=== PATIENT | female | born 1975 | race Caucasian/White ===

== ENCOUNTER 2021-04-18 11:02 | Inpatient (IN) | payer OTHER ==
[~2021-04-18] VITALS: Ht 188 cm; Wt 89.0 kg
[2021-04-18] MEDS ORDERED: SODIUM CHLORIDE 0.9% 1,000ML IVBOLUS ONE (11:30)
[2021-04-18] MEDS ORDERED: ONDANSETRON 2MG/ML, 2ML IVPush ONE (11:30)
[2021-04-18] MEDS ORDERED: HYDROmorphone 1 MG/ML, 1ML INJ IV ONE ×2 (11:30→14:00)
[2021-04-18] MEDS ORDERED: HYDROmorphone 1 MG/ML, 1ML INJ ONE ×2 (11:32→14:16)
[2021-04-18] MEDS ORDERED: ONDANSETRON 2MG/ML, 2ML ONE (11:32)
[2021-04-18 11:56] LABS: BASOPHILS % (AUTO) 2 % (0-1); EOSINOPHILS % (AUTO) 5 % (1-7); LYMPHOCYTES % (AUTO) 24 % (22-44); MEAN CORPUSCULAR HEMOGLOBIN 31.7 pg (27.0-34.8); MEAN CORPUSCULAR HGB CONC 34.5 g/dL (32.4-35.8); MEAN PLATELET VOLUME 7.6 fL (7.4-10.4); MONOCYTES % (AUTO) 9 % (2-9); NEUTROPHILS % (AUTO) 61 % (42-75); PLATELET COUNT 292 x10^3/uL (130-400); RED BLOOD COUNT 5.17 x10^6/uL (3.82-5.3); RED CELL DISTRIBUTION WIDTH 13.3 % (9.6-15.2)
[2021-04-18 12:00] LABS: ALBUMIN 4.1 g/dL (3.4-5.0); ANION GAP 6 mmol/L (5-15); CALCIUM 9.4 mg/dL (8.5-10.1); CHLORIDE 107 mmol/L (98-107)
[2021-04-18 12:05] LABS: ALANINE AMINOTRANSFERASE 31 U/L (12-78); ALKALINE PHOSPHATASE 58 U/L (45-117); BILIRUBIN,TOTAL 0.6 mg/dL (0.2-1.0); CREATININE 1.07 mg/dL (0.55-1.02); TOTAL PROTEIN 7.6 g/dL (6.4-8.2)
--- NOTE | 2021-04-18 12:28 | NUR ---
PT IN CT AT THIS TIME.
[2021-04-18] MEDS ORDERED: OMNIPAQUE 350 MG/ML, 100ML BOTTLE ONE (12:30)
--- NOTE | 2021-04-18 12:54 | NUR ---
STILL NO URINE SAMPLE PROVIDED. ORDERED FLUIDS ARE INFUSING. PT AWARE SHE NEEDS TO PROVIDE URINE SAMPLE. PT GIVEN URINE CUP.
--- NOTE | 2021-04-18 12:55 | NUR ---
PT WANTED ERP TO BE AWARE SHE HAD INTERNAL HERNIAS BEFORE FROM A Y-ROUTE GASTRIC BYPASS. ERP INFORMED.
[2021-04-18 13:27] LABS: MICROSCOPIC NOT IND
--- NOTE | 2021-04-18 13:38 | NUR ---
dr falcon spoke with dr ashby
--- NOTE | 2021-04-18 14:28 | NUR ---
PT MEDICATED PER JAN, LIGHTS DIMMED FOR COMFORT. PT WITH CALL LIGHT IN REACH. NO OTHER NEEDS AT THIS TIME
[2021-04-18] MEDS ORDERED: LACTATED RINGERS 500 ML IVBOLUS PRN (16:00)
[2021-04-18] MEDS ORDERED: ONDANSETRON 2MG/ML, 2ML IVPush PRN (16:00)
--- NOTE | 2021-04-18 16:00 | NUR ---
ATTEMPT TO CALL REPORT X1 TOLD RN WILL CALL BACK
[2021-04-18] MEDS ORDERED: LORazepam 2 MG/ML, 1ML IVPush PRN (16:30)
[2021-04-18 17:11] VITALS: BP 119/85
[2021-04-18 17:15] VITALS: BP 119/85
[2021-04-18] MEDS: POTASSIUM CHLORIDE 20 MEQ in D5%-0.45% NACL 1,000 ML IV SCH (17:49)
[2021-04-18] MEDS: HYDROmorphone 2 MG/ML, 1ML IVPush PRN ×2 (17:49→20:27)
[2021-04-18 19:09] VITALS: BP 114/72
[2021-04-19] MEDS: HYDROmorphone 2 MG/ML, 1ML IVPush PRN ×6 (00:56→23:58)
[2021-04-19 01:07] VITALS: BP 97/60
[2021-04-19] MEDS: POTASSIUM CHLORIDE 20 MEQ in D5%-0.45% NACL 1,000 ML IV SCH ×2 (02:57→13:00)
[2021-04-19 05:36] LABS: BASOPHILS % (AUTO) 1 % (0-1); EOSINOPHILS % (AUTO) 8 % (1-7); LYMPHOCYTES % (AUTO) 47 % (22-44); MEAN CORPUSCULAR HEMOGLOBIN 31.6 pg (27.0-34.8); MEAN CORPUSCULAR HGB CONC 34.4 g/dL (32.4-35.8); MEAN PLATELET VOLUME 7.7 fL (7.4-10.4); MONOCYTES % (AUTO) 10 % (2-9); NEUTROPHILS % (AUTO) 34 % (42-75); PLATELET COUNT 224 x10^3/uL (130-400); RED BLOOD COUNT 4.29 x10^6/uL (3.82-5.3); RED CELL DISTRIBUTION WIDTH 13.4 % (9.6-15.2)
[2021-04-19 05:44] LABS: ALBUMIN 3.2 g/dL (3.4-5.0); ANION GAP 3 mmol/L (5-15); CALCIUM 8.8 mg/dL (8.5-10.1); CHLORIDE 110 mmol/L (98-107)
[2021-04-19 05:48] LABS: ALANINE AMINOTRANSFERASE 24 U/L (12-78); ALKALINE PHOSPHATASE 44 U/L (45-117); BILIRUBIN,TOTAL 0.5 mg/dL (0.2-1.0); CREATININE 0.85 mg/dL (0.55-1.02); TOTAL PROTEIN 5.8 g/dL (6.4-8.2)
[2021-04-19 07:50] VITALS: BP 101/63
[2021-04-19 13:44] VITALS: BP 116/73
[2021-04-19] MEDS ORDERED: CHLORHEXIDINE 15 ML UDC ONE (13:58)
[2021-04-19] MEDS ORDERED: CHLORHEXIDINE 15 ML UDC PO ONE (14:00)
[2021-04-19] MEDS ORDERED: BUPIVACAINE/PF 0.5% ONE (14:27)
[2021-04-19] MEDS ORDERED: EPINEPHRINE 1 MG/ML, 1ML ONE (14:27)
[2021-04-19] MEDS ORDERED: FENTANYL PF 250 MCG/5ML ONE (14:44)
[2021-04-19] MEDS ORDERED: MIDAZOLAM 1 MG/ML, 2ML ONE (14:44)
[2021-04-19] MEDS ORDERED: CEFOTETAN 2 GM ONE (14:49)
[2021-04-19] MEDS ORDERED: DEXAMETHASONE 4 MG/ML, 1ML ONE (14:49)
[2021-04-19] MEDS ORDERED: LACTATED RINGERS 1,000 ML IV SCH (15:00)
[2021-04-19] MEDS ORDERED: PROPOFOL 10 MG/ML, 20ML ONE (17:09)
[2021-04-19] MEDS ORDERED: ROCURONIUM 10MG/ML,5ML ONE (17:09)
[2021-04-19] MEDS ORDERED: CEFAZOLIN 1,000 MG ONE (17:09)
[2021-04-19] MEDS ORDERED: LIDOCAINE-MPF 2% ,5ML ONE ×2 (17:09)
[2021-04-19] MEDS ORDERED: NEOSTIGMINE 1 MG/ML, 10ML ONE (17:09)
[2021-04-19] MEDS ORDERED: SUCCINYLCHOLINE 20 MG/ML, 10ML ONE (17:09)
[2021-04-19] MEDS ORDERED: GLYCOPYRROLATE 0.2MG/1ML, 5ML ONE (17:09)
[2021-04-19] MEDS ORDERED: ONDANSETRON 2MG/ML, 2ML ONE (17:09)
[2021-04-19] MEDS ORDERED: FENTANYL PF 100 MCG/2ML ONE (17:26)
[2021-04-19] MEDS ORDERED: OXYcodone 5 MG/5 ML ORAL.SOL UDC ONE (17:26)
[2021-04-19] MEDS: FENTANYL PF 100 MCG/2ML IV PRN ×2 (17:27→17:32)
[2021-04-19] MEDS ORDERED: METHOCARBAMOL 1,000 MG in DEXTROSE 5% 100 ML IV PRN (17:30)
[2021-04-19] MEDS ORDERED: PROMETHAZINE 25 MG SUPP PR PRN (17:30)
[2021-04-19] MEDS ORDERED: OXYcodone 5 MG/5 ML ORAL.SOL UDC PO PRN (17:30)
[2021-04-19] MEDS ORDERED: ONDANSETRON 2MG/ML, 2ML IVPush PRN ×2 (17:30→21:00)
[2021-04-19] MEDS ORDERED: ACETAMINOPHEN 325 MG TABLET PO PRN (17:30)
[2021-04-19] MEDS ORDERED: PROMETHAZINE 25 MG/ML, 1ML IVPush PRN (17:30)
[2021-04-19] MEDS ORDERED: HYDROmorphone 1 MG/ML, 1ML INJ IVPush PRN (17:30)
[2021-04-19] MEDS ORDERED: LORazepam 2 MG/ML, 1ML IVPush PRN (17:30)
[2021-04-19] MEDS ORDERED: ACETAMINOPHEN 650 MG/20.3 ML UDC ONE (17:35)
[2021-04-19] MEDS ORDERED: HYDROmorphone 2 MG/ML, 1ML ONE (17:38)
[2021-04-19] MEDS ORDERED: MEPERIDINE/PF 100 MG/ML ONE (17:39)
[2021-04-19] MEDS: MEPERIDINE/PF 25MG/0.5ML IVPush PRN ×2 (17:40→17:55)
[2021-04-19 18:35] VITALS: BP 121/79
[2021-04-19] MEDS ORDERED: LACTATED RINGERS 500 ML IVBOLUS PRN (19:00)
[2021-04-19] MEDS ORDERED: DIPHENHYDRAMINE 25 MG CAPSULE PO PRN (19:00)
[2021-04-19] MEDS ORDERED: PHENOL THROAT SPRAY BOTTLE MM PRN (19:00)
[2021-04-19] MEDS ORDERED: DIPHENHYDRAMINE 50 MG/ML, 1ML IV PRN (19:00)
[2021-04-19] MEDS ORDERED: ONDANSETRON 8 MG TABLET PO PRN (20:00)
[2021-04-19] MEDS ORDERED: PROMETHAZINE 25 MG/ML, 1ML IM PRN (20:00)
[2021-04-19] MEDS: ENOXAPARIN 40 MG/0.4 ML SQ SCH (20:16)
[2021-04-19] MEDS: ACETAMINOPHEN 325 MG TABLET PO SCH (20:17)
[2021-04-19] MEDS: KETOROLAC 30 MG/1 ML IVPush SCH (20:17)
[2021-04-19] MEDS: POTASSIUM CHLORIDE 20 MEQ in LACTATED RINGERS 1,000 ML IV SCH (21:32)
[2021-04-19 23:59] VITALS: BP 94/60
[2021-04-20] MEDS: ACETAMINOPHEN 325 MG TABLET PO SCH ×4 (02:15→21:08)
[2021-04-20] MEDS: KETOROLAC 30 MG/1 ML IVPush SCH ×4 (02:15→21:07)
[2021-04-20 04:31] VITALS: BP 119/78
[2021-04-20] MEDS: HYDROmorphone 2 MG/ML, 1ML IVPush PRN (04:47)
[2021-04-20 05:31] LABS: BASOPHILS % (AUTO) 1 % (0-1); EOSINOPHILS % (AUTO) 0 % (1-7); LYMPHOCYTES % (AUTO) 16 % (22-44); MEAN CORPUSCULAR HEMOGLOBIN 31.9 pg (27.0-34.8); MEAN PLATELET VOLUME 7.7 fL (7.4-10.4); MONOCYTES % (AUTO) 8 % (2-9); NEUTROPHILS % (AUTO) 76 % (42-75); PLATELET COUNT 209 x10^3/uL (130-400); RED BLOOD COUNT 4.09 x10^6/uL (3.82-5.3); RED CELL DISTRIBUTION WIDTH 13.1 % (9.6-15.2)
[2021-04-20 07:17] VITALS: BP 102/65
[2021-04-20] MEDS: METHOCARBAMOL 750 MG TABLET PO PRN ×2 (08:32→21:18)
[2021-04-20] MEDS: OXYcodone 5 MG/5 ML ORAL.SOL UDC PO PRN ×3 (08:32→18:04)
[2021-04-20 09:21] LABS: ALBUMIN 2.8 g/dL (3.4-5.0); ANION GAP 7 mmol/L (5-15); CALCIUM 8.2 mg/dL (8.5-10.1); CHLORIDE 107 mmol/L (98-107)
[2021-04-20] MEDS ORDERED: LORA2TAB99 PO (12:18)
[2021-04-20] MEDS ORDERED: LEVO150T5 PO (12:18)
[2021-04-20 13:22] VITALS: BP 111/73
[2021-04-20] MEDS: POTASSIUM CHLORIDE 20 MEQ in LACTATED RINGERS 1,000 ML IV SCH (15:22)
[2021-04-20 19:45] VITALS: BP 107/66
[2021-04-20] MEDS ORDERED: LORazepam 1MG TABLET PO SCH (21:00)
[2021-04-20] MEDS: ENOXAPARIN 40 MG/0.4 ML SQ SCH (21:08)
[2021-04-21 02:21] VITALS: BP_SYST 133; BP_SYST 99; BP_DIAS 64; BP_DIAS 72
[2021-04-21] MEDS: KETOROLAC 30 MG/1 ML IVPush SCH ×2 (02:53→08:03)
[2021-04-21] MEDS: ACETAMINOPHEN 325 MG TABLET PO SCH ×2 (02:53→08:03)
[2021-04-21 05:33] LABS: BASOPHILS % (AUTO) 1 % (0-1); EOSINOPHILS % (AUTO) 5 % (1-7); LYMPHOCYTES % (AUTO) 28 % (22-44); MEAN CORPUSCULAR HEMOGLOBIN 31.9 pg (27.0-34.8); MEAN CORPUSCULAR HGB CONC 34.5 g/dL (32.4-35.8); MEAN PLATELET VOLUME 8.1 fL (7.4-10.4); MONOCYTES % (AUTO) 9 % (2-9); NEUTROPHILS % (AUTO) 57 % (42-75); PLATELET COUNT 203 x10^3/uL (130-400); RED BLOOD COUNT 3.97 x10^6/uL (3.82-5.3)
[2021-04-21] MEDS ORDERED: LEVOTHYROXINE 150 MCG TABLET PO SCH (06:00)
[2021-04-21] MEDS: OXYcodone 5 MG/5 ML ORAL.SOL UDC PO PRN ×2 (06:33→10:38)
[2021-04-21 07:13] VITALS: BP 101/67
[2021-04-21] MEDS ORDERED: DOCU100C33 PO (07:15)
[2021-04-21] MEDS ORDERED: ACET325T26 PO (07:15)
[2021-04-21] MEDS ORDERED: OXYC5TAB2 PO (07:15)
[2021-04-21 09:27] LABS: ANION GAP 5 mmol/L (5-15); CALCIUM 8.4 mg/dL (8.5-10.1); CHLORIDE 108 mmol/L (98-107); CREATININE 0.65 mg/dL (0.55-1.02)
[2021-04-21] MEDS: POTASSIUM CHLORIDE 20 MEQ in LACTATED RINGERS 1,000 ML IV SCH (10:19)
== END 2021-04-21 11:59 | disposition home or self-care (01) | DRG 331 ==
LOC: ED 11:33 → EDIP 15:01 → 4NE 16:35 → DCLOUNGE 04-21 11:55
PROVIDERS: ADMIT Student in an Organized Health Care Education/Training Program; ATTEND Student in an Organized Health Care Education/Training Program
PROC: 0D1A4ZA Bypass Jejunum to Jejunum, Percutaneous Endoscopic Approach (ICD-10-PCS; principal; 2021-04-19 15:30)
DX: K56.1 Intussusception (principal); Z98.84 Bariatric surgery status; Z20.822 Contact with and (suspected) exposure to COVID-19; Z88.5 Allergy status to narcotic agent
CPT/HCPCS: 36415; 96374; 96375; 99285; J3490; S0020; 74177; 80048; 80053; 81003; 81025; 82040; 83690; 84703; 85025; 87635; 88307; G0378; J0171; J0690; J1100; J1170; J1650; J1885; J2175; J2250; J2405; J2704; J2710; J3010; J3480; Q9967; J0330; J1200; J2060; J2800; J7030; J7120

== ENCOUNTER → 2021-05-14 | Outpatient (CLI) | payer OTHER ==
[~2021-05-14] MED LIST: ACET325T26 PO; DOCU100C33 PO; LEVO150T5 PO; LORA2TAB99 PO; OMNIPAQUE 350 MG/ML, 100ML BOTTLE ONE; OXYC5TAB2 PO
== END | disposition home or self-care (01) ==
LOC: CFH 07:58
PROVIDERS: ATTEND Student in an Organized Health Care Education/Training Program
DX: Z09 Encounter for follow-up examination after completed treatment for conditions other than malignant neoplasm (principal); K56.1 Intussusception; D25.9 Leiomyoma of uterus, unspecified; M51.37 Other intervertebral disc degeneration, lumbosacral region
CPT/HCPCS: 74177; Q9967